=== PATIENT | male | born 1985 | race Caucasian/White ===

== ENCOUNTER 2022-09-05 13:09 | Outpatient (REF) | payer BC, SELFPAY ==
--- NOTE | ~2022-09-05 | XR_ITS ---
EXAMINATION: PRE-MRI ORBITS CLINICAL INFORMATION: History of malignant 9 COMPARISON: None TECHNIQUE: 3 views FINDINGS: There is no radiopaque metallic foreign body seen in the orbits. The paranasal sinuses and mastoid air cells are well-aerated and clear. There is no facial bone abnormality seen. XR/XR pre mri screening IMPRESSION: No radiopaque metallic foreign body seen.
--- NOTE | ~2022-09-05 | MR_ITS ---
EXAMINATION: MR LUMBAR SPINE WITHOUT CONTRAST CLINICAL INFORMATION: 37-year-old with self-reported low back pain radiating to the left hip and leg, with left foot drop. Left L4-L5 radiculopathy with foot drop. COMPARISON: None TECHNIQUE: MRI of the lumbar spine was obtained using routine sequences without contrast. FINDINGS: Coronal Alignment: There is mild lower lumbar levocurvature, slightly convex to the left at L4. Sagittal Alignment: There is straightening of the lumbar spine with trace retrolisthesis at L4-L5. Lumbosacral Junction: Normal. Five nonrib-bearing lumbar-type vertebral bodies. Vertebral Bodies: There is mild chronic loss of height of the posterior aspect of the L5 vertebral body. Remaining vertebral body heights are well maintained. Disc Spaces and Endplates: Severe disc volume loss noted at L5-S1, with disc desiccation, Schmorl's nodes and spondylosis asymmetric to the left. [id number] disc space height loss asymmetric to the right at L4-L5 with disc desiccation, Schmorl's nodes and minor spondylosis. Disc desiccation at L3-L4 without significant disc space height loss. Remaining lumbar and visualized lower thoracic intervertebral disc space heights and signal are well maintained. There is minor anterior marginal endplate spurring at L1-L2. Spinal Canal: No abnormal developmental findings. Bone Marrow: Type I degenerative marrow signal changes are noted along the endplates at L5-S1 asymmetric to the left. Mild type II degenerative marrow signal changes are seen at L5-S1 and along the endplates anteriorly asymmetric to the right at L4-L5. No suspicious marrow-replacing process or other bone marrow edema. Conus Medullaris: Terminates at L1. Morphology and signal is normal. Intradural Nerve Roots: Within normal limits. L5-S1: Concentric disc bulging is noted with no significant thecal sac compromise or canal stenosis. Minor facet arthrosis noted on the left. Moderate left-sided and mild right-sided neural foraminal stenosis noted without exiting neural impingement. L4-L5: Concentric disc bulging is noted slightly asymmetric to the right with minor bilateral facet arthrosis. There is [id number] right-sided neural foraminal stenosis without definite neural impingement. There is no spinal canal or left-sided neural foraminal stenosis. L3-L4: Shallow broad-based central disc protrusion with a tiny right paramedian central annular fissure with minimal indentation of the ventral thecal sac without significant facet arthrosis, canal or neural foraminal stenosis. L2-L3: Normal disc contour. No facet arthrosis, canal or neural foraminal stenosis. L1-L2: Normal disc contour. No facet arthrosis, canal or neural foraminal stenosis. Paraspinal/Retroperitoneal: The visualized paravertebral soft tissues are within normal limits. On the food assembler kitchen view, there is a 6.5 cm focus of T2 hyperintense signal alteration in the right hepatic lobe which bulges the medial contour of the liver capsule, suggestive of a large hepatic hemangioma. Other mass lesions cannot be excluded, and ultrasound is recommended to further assess and confirm this. MR/MR lumbar spine wo con IMPRESSION: 1. Mild lower lumbar levocurvature, slightly convex to the left at L4 with straightening of the lumbar spine in the sagittal plane and trace retrolisthesis at L4-L5. 2. Multilevel discogenic degenerative changes between L3-L4 and L5-S1 inclusive, with mild degrees of spondylosis most apparent at L5-S1 with disc bulging at L4-L5 and L5-S1 and small central disc protrusion at L3-L4. Minor degrees of facet arthropathy bilaterally at the lower lumbar levels, as detailed above. 3. No spinal canal stenosis. Moderate left and mild right-sided neural foraminal stenosis at L5-S1 and [id number] right-sided neural foraminal stenosis at L4-L5 without neural impingement. 4. Possible 6.5 cm mass in the right hepatic lobe. Recommend abdominal ultrasound to further assess. The [facility] staff will call to confirm receipt of this report with acknowledgement of the findings and any recommendations.
== END 2022-09-05 13:10 | disposition home or self-care (01) ==
LOC: HO.MRI 13:09
PROVIDERS: PCP Internal Medicine; Visit Provider Psychiatry & Neurology Neurology
DX: M54.16 Radiculopathy, lumbar region (principal)
CPT/HCPCS: 72148

== ENCOUNTER 2022-11-17 07:44 | Outpatient (REF) | payer BC, SELFPAY ==
--- NOTE | ~2022-11-17 | US_ITS ---
EXAMINATION: US ABDOMEN COMPLETE CLINICAL INFORMATION: Fatty liver. COMPARISON: None TECHNIQUE: Real-time imaging of the abdominal viscera. FINDINGS: PANCREAS: Normal. ABDOMINAL AORTA: The proximal, mid, and distal segments are normal in caliber. INFERIOR VENA CAVA: Visualized portions are normal. LIVER: The liver contour is normal. There is diffuse increased liver parenchymal echogenicity, consistent with infiltrative hepatocellular disease. There is a 5.7 x 5.2 cm heterogeneous region in the right hepatic lobe without internal vascularity, relatively hypoattenuating with respect to the hepatic parenchyma. There is no intrahepatic biliary duct dilatation seen. GALLBLADDER: Normal. The gallbladder is physiologically distended without evidence of stones, sludge, polyps, wall thickening or pericholecystic fluid. COMMON BILE DUCT: Normal in caliber measuring 0.4 cm in diameter. RIGHT KIDNEY: Normal. No hydronephrosis. No renal calculi or focal parenchymal lesions. The kidney measures 10.6 cm in maximum dimension. LEFT KIDNEY: 5 mm nonobstructing lower pole renal stone. No hydronephrosis or focal parenchymal lesions. The kidney measures 11.9 cm in maximum dimension. SPLEEN: Normal. The spleen measures 12.1 cm in maximum dimension. FREE FLUID: None. US/US abdomen complete IMPRESSION: Increased hepatic echogenicity which can be seen in the setting of hepatic steatosis or underlying liver disease. There is an approximately 5.7 cm heterogeneous region in the right hepatic lobe, which although one consideration would include heterogeneous fatty infiltration and areas of sparing a discrete liver lesion could also have this appearance and further characterization with contrast-enhanced MR abdomen is recommended. 5 mm nonobstructing left lower pole renal stone.
== END 2022-11-17 07:45 | disposition home or self-care (01) ==
LOC: HO.US 07:44
PROVIDERS: Visit Provider Psychiatry & Neurology Neurology
DX: K76.0 Fatty (change of) liver, not elsewhere classified (principal)
CPT/HCPCS: 76700